=== PATIENT | female | born 1975 | race Caucasian/White ===

== ENCOUNTER → 2016-05-26 | Outpatient (CLI) | payer BC ==
[~2016-05-26] MED LIST: PRILOSEC2.5 MG PO
== END ==
DX: R74.0 Nonspecific elevation of levels of transaminase and lactic acid dehydrogenase [LDH] (principal); R10.13 Epigastric pain; Z90.710 Acquired absence of both cervix and uterus
CPT/HCPCS: 76705

== ENCOUNTER → 2020-03-30 | Outpatient (CLI) | payer OTHER ==
[~2020-03-30] MED LIST changes: +AUGMENTIN 875-1 EACH PO; +IBUPROFEN800 MG PO; +SUDAFED 30 MG T30 MG PO
== END ==
LOC: KOH-I 09:00
DX: J32.9 Chronic sinusitis, unspecified (principal); J34.89 Other specified disorders of nose and nasal sinuses
CPT/HCPCS: 70486